=== PATIENT | male | born 1980 | race Caucasian/White ===

== ENCOUNTER 2022-05-25 09:18 | Emergency (ER) | payer SELFPAY ==
[~2022-05-25] VITALS: Ht 160 cm; Wt 95.0 kg
[2022-05-25] MEDS ORDERED: TETANUS AND DIPHTHERIA TOX/PF 0.5ML SYR (ADULT) IM ONE (09:30)
[2022-05-25] MEDS ORDERED: HYDROCODONE/ACETAMINOPHEN 5/325MG TABLET PO ONE (11:00)
[2022-05-25] MEDS ORDERED: BACITRACIN ZINC OINT UDPKT TOP ONE (11:00)
[2022-05-25] MEDS ORDERED: LIDOCAINE HCL/PF 1% 10 MG/ML 5ML VIAL INFIL ONE ×2 (11:00→12:15)
[2022-05-25 11:58] VITALS: BP 153/100
[2022-05-25] MEDS ORDERED: CEFAZOLIN 1000MG PREMIX 50 ML IV ONE (13:00)
[2022-05-25] MEDS ORDERED: CEPH500C2 MT (13:24)
[2022-05-25] MEDS ORDERED: HYDR-4001 PO (13:24)
[2022-05-25] MEDS ORDERED: IBUP-2029 PO (13:24)
== END 2022-05-25 14:07 | disposition home or self-care (01) ==
LOC: ER 09:18
DX: S61.411A Laceration without foreign body of right hand, initial encounter (principal); W45.8XXA Other foreign body or object entering through skin, initial encounter; Y93.89 Activity, other specified; Y92.89 Other specified places as the place of occurrence of the external cause; Y99.8 Other external cause status
CPT/HCPCS: 12004; 73130; 96365; 99284; J0690; J3490; Z7610; 90714